=== PATIENT | male | born 1960 | race Hispanic/Latino ===

== ENCOUNTER → 2022-10-06 | Outpatient (CLI) | payer MEDICAID ==
[~2022-10-06] MED LIST: REGADENOSON 0.4 MG/5 ML PF SYG IVP ONE
== END | disposition home or self-care (01) ==
LOC: SHCH 09:06
PROVIDERS: ATTEND Internal Medicine Cardiovascular Disease
DX: I25.10 Atherosclerotic heart disease of native coronary artery without angina pectoris (principal)
CPT/HCPCS: 78452; 96374; 93017; J2785; A9500 ×2

== ENCOUNTER 2022-12-08 06:00 | Day surgery (SDC) | payer MEDICAID ==
[2022-12-06 09:38] LABS: EOSINOPHILS % (AUTO) 8.7 % (0.0-8.0); HEMATOCRIT 52.2 % (42-54); LYMPHOCYTES % (AUTO) 18.4 % (21.0-51.0); MEAN CORPUSCULAR HEMOGLOBIN 31.4 pg (27.0-33.0); MEAN CORPUSCULAR HGB CONC 33.5 g/dL (32.0-36.0); MEAN CORPUSCULAR VOLUME 93.5 fL (79-99); MONOCYTES % (AUTO) 7.8 % (3.0-13.0); NEUTROPHILS % (AUTO) 63.5 % (40.0-77.0); PLATELET COUNT (AUTO) 155 K/uL (130-400); RED BLOOD CELL COUNT(AUTO) 5.58 MIL/uL (4.50-6.20); RED CELL DISTRIBUTION WIDTH 13.3 % (11.0-15.5); WHITE BLOOD COUNT (AUTO) 10.3 K/uL (4.8-10.8)
[2022-12-06 09:43] LABS: APPEARANCE,URINE CLEAR (CLEAR); BILIRUBIN,URINE NEGATIVE (NEGATIVE); COLOR,URINE LIGHT-YELLOW (YELLOW); GLUCOSE, URINE (UA) NEGATIVE (NEGATIVE); KETONES,URINE NEGATIVE (NEGATIVE); LEUKOCYTE ESTERASE ,URINE NEGATIVE Leu/uL (NEGATIVE); NITRATE,URINE NEGATIVE (NEGATIVE); OCCULT BLOOD,URINE NEGATIVE (NEGATIVE); PROTEIN,URINE NEGATIVE (NEGATIVE); UROBILINOGEN,URINE 0.2 mg/dL (0.2-1.0)
[2022-12-06 09:54] LABS: INR 1.09 (0.85-1.15); PROTHROMBIN TIME 11.8 SEC (9.6-11.6)
[2022-12-06 09:56] LABS: PARTIAL THROMBOPLASTIN TIME 31.6 SEC (26.3-35.5)
[2022-12-06 09:57] LABS: B-TYPE NATRIURETIC PEPTIDE 96 pg/mL (0-100)
[2022-12-06 10:00] LABS: CREATININE 1.5 mg/dL (0.5-1.5); POTASSIUM 4.5 mmol/L (3.5-5.1)
[2022-12-08] VITALS (11 sets, daily range): BP systolic 113–192; BP diastolic 71–107
[~2022-12-08] VITALS: Ht 160 cm; Wt 105.5 kg
[2022-12-08] MEDS ORDERED: CLONIDINE HCL 0.1 MG TABLET ONE (07:21)
[2022-12-08] MEDS ORDERED: DIAZEPAM 5 MG TABLET ONE (07:23)
[2022-12-08] MEDS ORDERED: 0.9%NACL 1000ML 1,000 ML IV ONE (07:31)
[2022-12-08] MEDS ORDERED: AEC81 PO (07:37)
[2022-12-08] MEDS ORDERED: TAMS-1 PO (07:37)
[2022-12-08] MEDS ORDERED: LOSA100T59 PO (07:37)
[2022-12-08] MEDS ORDERED: AMLO-258 PO (07:37)
[2022-12-08] MEDS ORDERED: CARV12.511 PO (07:37)
[2022-12-08] MEDS ORDERED: TRAZ300T2 PO (07:37)
[2022-12-08] MEDS ORDERED: LIDOCAINE HCL 400MG/20ML VIAL ONE (10:29)
[2022-12-08] MEDS ORDERED: SODIUM BICARB 50MEQ 50ML VIAL 50 ML ONE (10:29)
[2022-12-08] MEDS ORDERED: MEPERIDINE-PF 25 MG/ML SYG ONE ×2 (10:29→10:51)
[2022-12-08] MEDS ORDERED: MIDAZOLAM HCL 1 MG/ML 2ML VIAL ONE ×2 (10:30→10:51)
[2022-12-08] MEDS ORDERED: IOHEXOL-350 50ML VIAL IV ONE (10:30)
[2022-12-08] MEDS ORDERED: NITROGLYCERIN 50MG VIAL ONE (10:30)
[2022-12-08] MEDS ORDERED: HEPARIN 10,000 UNIT/10ML (1,000 UNIT/ML) VIAL ONE (10:30)
[2022-12-08] MEDS ORDERED: IOHEXOL 350 MG/ML 100ML INFUS..BTL IV ONE (10:30)
[2022-12-08] MEDS ORDERED: CLOPIDOGREL 300MG TAB ONE (11:51)
[2022-12-08] MEDS ORDERED: ASPIRIN 81MG CHEW TAB ONE (11:51)
[2022-12-08] MEDS ORDERED: 0.9%NACL 1000ML 1,000 ML IV SCH (12:00)
[2022-12-08] MEDS ORDERED: TRAZODONE HCL 100 MG TABLET PO SCH (12:30)
[2022-12-08] MEDS ORDERED: PHARMACY COMMUNICATION MISC PRN (13:30)
[2022-12-08] MEDS ORDERED: ACETAMINOPHEN 325 MG TAB PO PRN ×2 (13:30)
[2022-12-08] MEDS ORDERED: CHLORDIAZEPOXIDE HCL 25 MG CAP PO PRN (13:30)
[2022-12-08] MEDS ORDERED: ONDANSETRON 4MG INJ IV PRN (13:30)
[2022-12-08] MEDS ORDERED: LORAZEPAM 2 MG/ML 1 ML VIAL IVP PRN (13:30)
[2022-12-08] MEDS ORDERED: FAMOTIDINE 20MG TAB PO SCH (21:00)
[2022-12-08] MEDS ORDERED: CARVEDILOL 12.5 MG TABLET PO SCH (21:00)
[2022-12-08] MEDS ORDERED: ATORVASTATIN 10 MG TABLET PO SCH (21:00)
[2022-12-09] MEDS ORDERED: ASPIRIN 81 MG EC TAB PO SCH (09:00)
[2022-12-09] MEDS ORDERED: AMLODIPINE 5 MG TAB PO SCH (09:00)
[2022-12-09] MEDS ORDERED: TAMSULOSIN HCL 0.4 MG CAP.ER.24H PO SCH (09:00)
[2022-12-09] MEDS ORDERED: TRAZODONE HCL 200 MG PO SCH (09:00)
[2022-12-09] MEDS ORDERED: MULTIVITAMIN TABLET PO SCH (09:00)
[2022-12-09] MEDS ORDERED: LOSARTAN 100 MG TABLET PO SCH (09:00)
[2022-12-09] MEDS ORDERED: FOLIC ACID 1 MG TABLET PO SCH (09:00)
[2022-12-09] MEDS ORDERED: THIAMINE HCL 100 MG/ML 2ML VIAL IM SCH (09:00)
[2022-12-09] MEDS ORDERED: NON-FORMULARY MEDICATION 1 EACH (Amlodipine Besylate 10 MG) PO SCH (09:00)
[2022-12-09] MEDS ORDERED: CLOPIDOGREL 75MG TAB PO SCH (09:00)
== END 2022-12-08 16:00 | disposition home or self-care (01) ==
LOC: DAH 06:00 → UNDOADMOB 06:01 → DAHIP 06:01 → DAH 06:01 → DAHIP 16:00
PROVIDERS: ATTEND Internal Medicine Cardiovascular Disease
DX: I25.119 Atherosclerotic heart disease of native coronary artery with unspecified angina pectoris (principal); I25.5 Ischemic cardiomyopathy; E11.22 Type 2 diabetes mellitus with diabetic chronic kidney disease; I13.0 Hypertensive heart and chronic kidney disease with heart failure and stage 1 through stage 4 chronic kidney disease, or unspecified chronic kidney disease; N18.9 Chronic kidney disease, unspecified; I50.42 Chronic combined systolic (congestive) and diastolic (congestive) heart failure; E78.5 Hyperlipidemia, unspecified; I25.2 Old myocardial infarction; F17.200 Nicotine dependence, unspecified, uncomplicated; Z72.89 Other problems related to lifestyle; Z95.5 Presence of coronary angioplasty implant and graft; Z83.3 Family history of diabetes mellitus; Z82.49 Family history of ischemic heart disease and other diseases of the circulatory system; Z79.82 Long term (current) use of aspirin; Z79.02 Long term (current) use of antithrombotics/antiplatelets; Z79.01 Long term (current) use of anticoagulants; Z79.899 Other long term (current) drug therapy; Z98.890 Other specified postprocedural states
CPT/HCPCS: 80048; 83880; 85025; 85610; 85730; 81003; 36415; 93005; 93459; 82948 ×2; 71045; C9600; C1769 ×2; C1887 ×2; C1894 ×2; C1760 ×2; C1874; Q9965 ×2; J3490 ×3; J7030; J1644 ×2; J2250 ×2; J2175 ×2; Q9967; A4215; A4222; A4221; A4663; A4216; A4606; A4223 ×3; 96366; 99156; 99157; J3411